=== PATIENT | female | born 1985 | race Caucasian/White ===

== ENCOUNTER 2023-06-04 12:04 | Emergency (ER) | payer OTHER, SELFPAY ==
[2023-06-04 12:06] VITALS: BP 118/89
[2023-06-04 12:48] VITALS: BMI 25.2
[2023-06-04] MEDS: DILAUDID 0.25 MG IV (13:00)
[2023-06-04 13:10] LABS: % Basophils 0.3 % (0-2); % Eosinophils 0.7 % (0-6); % Immature Granulocytes 0.6 % (0-0.5); % Lymphocytes 14.1 % (20.5-51.1); % Monocytes 4.9 % (1.7-9.3); % Neutrophils 79.4 % (42.2-75.2); Absolute Eosinophils 0.1 10^3/uL (0-0.7); Absolute Immature Granulocytes 0.1 10^3/uL (0-0.05); Absolute Lymphocytes 1.5 10^3/uL (1.2-3.4); Absolute Monocytes 0.5 10^3/uL (0.1-0.6); Absolute Neutrophils 8.5 10^3/uL (1.4-6.5); Hematocrit 38.6 % (37.0-47.0); Hemoglobin 13.6 g/dL (12.0-16.0); Mean Corp Hgb Conc. 35.2 g/dL (33.0-37.0); Mean Corpuscular Hgb 30.4 pg (27.0-31.0); Mean Corpuscular Volume 86.4 fL (81.0-99.0); Mean Platelet Volume 11.5 fL (7.4-10.4); Nucleated Red Blood Cells % 0 %; Platelet Count 136 10^3/uL (130-400); Red Blood Cell Count 4.47 10^6/uL (4.20-5.40); Red Cell Dist. Width 11.4 % (11.5-14.5); White Blood Cell Count 10.6 10^3/uL (4.8-10.8)
[2023-06-04 13:17] LABS: HCG, Serum Qualitative Screen Negative
[2023-06-04 13:19] LABS: ALT (SGPT) 20 U/L (0-35); AST (SGOT) 28 U/L (14-36); Albumin 4.6 g/dl (3.5-5.0); Alkaline Phosphatase 50 U/L (38-126); Blood Urea Nitrogen 16 mg/dl (7-17); Calcium 9.3 mg/dl (8.4-10.2); Carbon Dioxide 27 mmol/L (22-30); Chloride 103 mmol/L (98-107); Estimated Creatinine Clearance 97 ml/min; Glucose 96 mg/dl (70-99); Potassium 3.5 mmol/L (3.5-5.1); Sodium 136 mmol/L (135-145); Total Bilirubin 0.8 mg/dl (0.2-1.3); eGFR > 60.00
--- NOTE | 2023-06-04 13:24 | ED.GENMED ---
History of Present Illness
General
Chief Complaint: Abdominal Pain
Time Seen by Provider: 06/04/23 12:25
Travel History
Have you had any contact with someone who has COVID-19?: No
Do you have any symptoms of coronavirus? Fever > 100 degrees, chills, cough, shortness of breath, sore throat, loss of taste or smell, muscle aches, or headache?: No
History of Present Illness
History of Present Illness:
38-year-old female with no significant past medical history presents to the emergency department for evaluation of sudden onset of rectal pain developing while attempting to use the bathroom today. States she had no pain when waking up this
morning. Feels a constant urge to have a bowel movement and did use a saline enema as well as Dulcolax with no relief. Denies any rectal trauma or anal insertive intercourse. Denies any rectal bleeding or recent diarrhea. Denies any anterior
abdominal pain. She is 1 month status post fixation of a diastases recti as well as a tummy tuck procedure. No recent fevers or chills. Does note that she used Mounjaro 1 month ago
Past History
Past History
ED Past Medical History: None
ED Past Surgical History:
Social History
Tobacco: Non-smoker
Review of Systems
Review of Systems
Allergies reviewed?: Yes
All Other Systems: ROS reviewed and negative except as documented in HPI and ROS
Phy Exam
Physical Exam
Physical Exam:
GEN: Tearful, writhing in pain
Eyes: PERRLA, EOMs intact, no scleral icterus
HENT: NCAT, oral mucosa moist
Lungs: CTAB, no wheezes, rales, rhonchi, normal chest wall excursion
Cardiac: RRR, no M/R/G, no peripheral edema
Abdomen: S, NT, ND, NABS, no masses or hepatosplenomegaly. Low transverse incision from recent surgery is well-approximated with no dehiscence
Rectal: Midline, no bleeding, grossly nontender, no stool
Neuro: AO x 3
MSK: No gross deformity or ecchymosis. No edema. No digital clubbing
Skin: No rashes, petechiae. Normal color, no pallor or jaundice.
Psych: Calm, cooperative, proper hygiene
Course
Orders/Labs/Results
Orders:
Orders
06/04/23 12:49
HYDROmorphone [Dilaudid] 0.25 mg IV NOW STA
US Pelvis W Transvag Combined Stat
Comment:
Reason For Exam: acute pelvic pain eval for torsion
06/04/23 12:50
Test Result ONCE
06/04/23 12:56
Complete Blood Count/With Diff Urgent
Comprehensive Metabolic Panel Urgent
HCG, Serum Qualitative Screen Urgent
06/04/23 13:48
HYDROmorphone [Dilaudid] 0.5 mg IV NOW STA
06/04/23 14:20
CT Abd/Pel (IV only)-DH only Urgent
Comment:
Reason For Exam: severe rectal pain, neg US
06/04/23 14:25
Ketorolac [Toradol] 15 mg IV NOW STA
06/04/23 15:34
Urinalysis Reflex To Culture Urgent
Date Specimen was Collected: 06/04/23
Time Specimen was Collected: 15:27
06/04/23 17:15
Ketorolac [Toradol] 15 mg IV NOW STA
Abnormal Lab Results
06/04/23 06/04/23
12:56 15:34
RDW 11.4 L %
(11.5-14.5)
MPV 11.5 H fL
(7.4-10.4)
Abs Immat Gran (auto) 0.1 H 10^3/uL
(0-0.05)
Absolute Neuts (auto) 8.5 H 10^3/uL
(1.4-6.5)
Immature Gran % 0.6 H %
(0-0.5)
Neutrophils % 79.4 H %
(42.2-75.2)
Lymphocytes % 14.1 L %
(20.5-51.1)
Urine Ketones 1+ A
(Negative)
06/04/23 12:56
06/04/23 12:56
Vital Signs
Initial and Last Documented VS:
Initial Vital Signs
Temp Pulse Resp BP Pulse Ox
98.1 F 85 18 118/89 100
06/04/23 12:06 06/04/23 12:06 06/04/23 12:06 06/04/23 12:06 06/04/23 12:06
Last Documented Vital Signs
Temp Pulse Resp BP Pulse Ox
98.1 F 72 20 106/58 99
06/04/23 12:06 06/04/23 17:09 06/04/23 14:10 06/04/23 17:09 06/04/23 17:09
MDM/Problems Addressed
MDM/Problems Addressed:
After initial evaluation the immediate concerns for possible ovarian torsion given the patient's abrupt nature of pain and colicky/waxing and waning nature. Particular given that she had no stool in the rectal vault and no rectal tenderness I do
not suspect GI pathology initially. She was sent for urgent ultrasound that was unremarkable, given her continued pain despite IV opioids she was then sent for CT scan which revealed acute proctitis. The cause of her proctitis at this time is not
clear given that she had no recent trauma, has no symptoms suspicious for underlying IBD. Certainly Mounjaro could be implicated however there are no case reports to suggest acute proctitis in association with this. Patient was offered admission
for further workup however she declines given that pain is controlled after Toradol. Will treat with NSAIDs, I did discuss the case with gastroenterology who do not recommend antibiotics at this juncture. Outpatient GI follow-up encouraged
*Critical Care Note
Total Time (30-74mins, 75-104mins- exclusive of procedures): Not Applicable
ED Attending Note
-
Portions of this chart may have been created with voice recognition software.� Occasional wrong word or��sound alike� substitutions may have occurred due to the inherent limitations of voice recognition software.
Discharge Plan
Departure
Patient Disposition: Home (Routine Discharge)
Date of Disposition: 06/04/23
Time of Disposition: 17:16
Patient with high blood pressure during this ER visit?: No
Discharge Problem:
Acute proctitis
Instructions: Proctitis
Prescriptions:
New
diclofenac sodium 50 mg tablet,delayed release (DR/EC)
50 mg PO TID PRN (Reason: Pain) Qty: 20 0RF
oxycodone 5 mg tablet
5 mg PO Q8H PRN (Reason: Pain) Qty: 10 0RF
Referrals:
Isaiah Mullen MD [Active] - Follow up in 2-3 days
Interventions
Interventions:
*Risk Screen - Suicide Last Done: 06/04/23 15:27
*General Assessment Last Done: 06/04/23 12:48
*Neglect/Abuse Screening Last Done: 06/04/23 15:27
ED- Fall Risk Assessment Last Done: 06/04/23 12:48
*ED COVID-19 Vaccine History Last Done: 06/04/23 12:48
*Nursing Disposition Last Done: 06/04/23 17:54
[facility] Assessment Last Done: 06/04/23 12:48
Discharge Date and Time
Discharge Date/Time: 06/04/23 17:54
[2023-06-04] MEDS: DILAUDID 0.5 MG IV (14:05)
[2023-06-04 14:10] VITALS: BP 105/73
[2023-06-04] MEDS: TORADOL 15 MG IV ×2 (14:45→17:19)
[2023-06-04 15:50] LABS: Urine Albumin Negative (Neg - Trace); Urine Bilirubin Negative (Negative); Urine Character Clear (Clear); Urine Color Yellow; Urine Glucose Negative (Negative); Urine Ketone 1+ (Negative); Urine Leukocyte Negative (Negative); Urine Nitrite Negative (Negative); Urine Occult Blood Negative (Negative); Urine Specific Gravity 1.015 (<1.030); Urine Urobilinogen Negative (Neg - 1+)
[2023-06-04 17:09] VITALS: BP 106/58
== END 2023-06-04 17:54 | disposition home or self-care (01) ==
LOC: EMR 12:04
PROVIDERS: Physician Assistant; EMERGENCY PHYSICIAN Emergency Medicine
DX: K62.89 Other specified diseases of anus and rectum (principal)
CPT/HCPCS: 99285; 96374; 96375; 96376 ×2; 74177; 76830; 76856; 80053; 81003; 84703; 85025; Q9967